=== PATIENT | male | born 1995 | race Caucasian/White ===

== ENCOUNTER 2023-02-14 09:05 | Outpatient (CLI) | payer BC ==
[2023-02-14] MEDS ORDERED: Iopamidol-370 76% 500 ML MDV (1 ML CHARGE) ONE (09:28)
== END 2023-02-14 09:06 | disposition home or self-care (01) ==
LOC: BICCT 09:05
PROVIDERS: ATTEND Internal Medicine
DX: R10.2 Pelvic and perineal pain (principal); K21.9 Gastro-esophageal reflux disease without esophagitis; K59.00 Constipation, unspecified; I77.79 Dissection of other specified artery
CPT/HCPCS: 74177

== ENCOUNTER 2023-03-07 12:29 | Outpatient (CLI) | payer BC ==
[~2023-03-07 12:29] MED LIST: Magnevist 469MG/ML 20 ML VIAL ONE
== END 2023-03-07 12:30 | disposition home or self-care (01) ==
LOC: MRI 12:29
PROVIDERS: ATTEND Internal Medicine
DX: I77.1 Stricture of artery (principal); K90.0 Celiac disease
CPT/HCPCS: 74185; A9579; C8902

== ENCOUNTER 2023-04-28 07:44 | Outpatient (CLI) | payer BC | END 2023-04-28 07:45 | disposition home or self-care (01) | LOC: CT 07:44 | PROVIDERS: ATTEND Surgery Vascular Surgery | DX: I77.1 Stricture of artery (principal); K59.00 Constipation, unspecified; I70.1 Atherosclerosis of renal artery; I77.4 Celiac artery compression syndrome | CPT/HCPCS: 74174 ==